=== PATIENT | female | born 1960 | race Caucasian/White ===

== ENCOUNTER 2016-10-21 11:23 | Emergency (ER) | payer MEDICAID ==
[~2016-10-21] VITALS: Ht 167.6 cm; Wt 59.1 kg
[2016-10-21 11:32] VITALS: BP 109/65; PULSE 78; O2SAT 97
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
[2016-10-21] MEDS ORDERED: oxyCODONE-Acetamin 5-325 mg Tablet PO ONE (11:55)
--- NOTE | 2016-10-21 12:56 | DRSVH ---
PROCEDURE: X-RAY LEFT SHOULDER, MINIMUM TWO VIEWS ([id number]) INDICATIONS: trauma TECHNIQUE: 3 views of the shoulder were acquired. COMPARISON: None. FINDINGS: Bones: No fractures or dislocations, but there is superior subluxation of the humeral head towards t he undersurface of the acromium which can be a result of a full-thickness supraspinatus rotator cuff tear. There also does appear to be a small amount of calcific bursitis involving the lateral subacr omial/subdeltoid bursal space.. No suspicious bony lesions. Visualized ribs appear intact. Soft tissues: No suspicious soft tissue calcifications. IMPRESSION: Possible acute rotator cuff tear given the presence of superior subluxation of the lila l head at the glenoid fossa. A small amount of calcific bursitis appears present given several small calcifications at the lateral aspect of the subacromial/subdeltoid bursal space. Dictated by: Jude Diaz M.D. on 10/21/2016 at 12:54 Approved by: Jude Diaz M.D. on 10/21/2016 at 12:54
== END 2016-10-21 13:35 | disposition home or self-care (01) ==
LOC: SED 11:23
DX: S40.012A Contusion of left shoulder, initial encounter (principal); V18.0XXA Pedal cycle driver injured in noncollision transport accident in nontraffic accident, initial encounter; Y93.55 Activity, bike riding; Y92.9 Unspecified place or not applicable; Y99.8 Other external cause status; F17.200 Nicotine dependence, unspecified, uncomplicated